=== PATIENT | female | born 1990 | race Hispanic/Latino ===

== ENCOUNTER 2017-05-17 16:25 | Day surgery (SDC) | payer OTHER, SELFPAY ==
[2017-05-17 17:13] VITALS: BMI 26.1
--- NOTE | 2017-05-17 18:04 | PRG ---
DATE OF SERVICE: 05/17/2017 TIME OF EVALUATION: 1715. LOCATION: Labor and Delivery triage. This is a patient of Dr. Her. REASON FOR EVALUATION: Suspected contractions at 39 weeks and 2 days. HISTORY OF PRESENT ILLNESS: This is a 27-year-old G1, P0, who has a due date of 05/22/2017 , which makes her 39 weeks and 2 days with a complaint of contractions and bloody show. She was see n yesterday in the office by Dr. Her and was called to 1 cm dilated. She denies trauma, recent le akage of fluid, fever or decreased movement. She denies any complications. REVIEW OF SYSTEMS: Complete review of systems was checked and is otherwise negative unless specifie d in the HPI. ALLERGIES: None. PAST SURGICAL HISTORY: Includes appendectomy in 2003. OBSTETRIC HISTORY: Significant that she is at a primigravida status and she is GBS positive. MEDICATIONS: None. PHYSICAL EXAMINATION: VITAL SIGNS: Her blood pressure is 124/80, pulse is 80, respirations are 18, and she is afebrile wi th a temperature of 98.7. GENERAL: Clinically, she is in no acute distress. ABDOMEN: Soft and nontender. There is no evidence of gross vaginal bleeding or ruptured membranes on perineal inspection. CERVICAL: Reveals a cervix of 3 cm dilation, 30% effacement, -3 station. She is cephalic. Bag of water is intact. On monitor, heart tones are in the 130s to 140s with moderate variability. There are ac celerations. There are no pathological decelerations. Contractions occur about 1 every 15-20 minut es. heart tones are reassuring. ASSESSMENT: This is a primigravida at 39 weeks and 2 days, the patient of Dr. Her, who is GBS pos itive in the latent phase of labor. She made cervical change from yesterday's exam and she is now 3 cm. PLAN: 1. As she is still in the latent phase, we will observe the patient here in Labor and Delivery for about 2 hours and seems to make any further progress. 2. Pain meds if needed. 3. If she makes any cervical change, we will notify Dr. Her and admit the patient to Labor and [facility]. 4. If remains unchanged with any in active contraction pattern, we may further allow for outpatient management with an outpatient followup in 24 hours. 5. Observation for now in Labor and Delivery.
--- NOTE | 2017-05-17 20:07 | PRG ---
DATE OF SERVICE: 05/17/2017 TIME OF BEDSIDE EVALUATION: 19:35 TIME OF DICTATION: 19:50 LOCATION: Labor and Delivery triage, bed B. REASON FOR REEVALUATION: : This is a patient who has been observed in Labor and Delivery for about 2 hours and has now ambulated and this is her reassessment of her cervical status. In brief, this is a patient who was called 3 cm about 2.5 hours ago and after ambulation [id number] presen ts for recheck of her cervix. She denies vaginal bleeding or leakage of fluid. She still has good movement. She denies headaches, right upper quadrant pain or visual changes. PHYSICAL EXAMINATION: VITAL SIGNS: Blood pressure is 118/78, pulse is in the 80s, breathing is unlabored at about 18. ABDOMEN: Soft and nontender. CERVICAL EXAM: Repeat cervical examination performed by Doris, the patient's nurse, while I was at [facility], remains 3 cm dilated, 40% effaced, -2 station, cephalic presentation. Bag of starks intact. MONITOR: There is still no evidence of consistent significant contractions, but she does have some uterine irritability. heart tones are in the 130s to 140s with moderate variability and accelerations. There is no evidence of pathological decelerations. ASSESSMENT: This is a patient with latent labor without cervical progress past 3 cm after 2 hours o f observation. PLAN: 1. The patient told to seek followup in 24-48 hours for reassessment, which Dr. Her as an outpati ent in the clinic. 2. She was told to return to Labor and Delivery if she was concerned that labor was progressing for signs or symptoms of vaginal bleeding or leakage of fluids or any other pressing issue. 3. Instructions given and questions answered. 4. Questions also answered from the who is at bedside. 5. The patient is stable for outpatient management.
== END 2017-05-17 19:58 | disposition home or self-care (01) ==
LOC: L&D/OP 16:25
PROVIDERS: ATTEND Family Medicine
DX: O47.1 False labor at or after 37 completed weeks of gestation (principal); Z3A.39 39 weeks gestation of pregnancy; Z90.49 Acquired absence of other specified parts of digestive tract

== ENCOUNTER 2017-05-18 08:39 | Day surgery (SDC) | payer SELFPAY ==
[2017-05-18 09:34] VITALS: BMI 26.9
--- NOTE | 2017-05-18 14:10 | PRG ---
DATE OF SERVICE: 05/18/2017 PRIMARY OB: Dr. Cole Her CHIEF COMPLAINT: Abdominal pains. HISTORY OF PRESENT ILLNESS: The patient is a 27-year-old G1, P0 female with an intrauterine pregnan cy at 39 weeks and 3 days who is representing to Labor and Delivery today with persistent abdominal pains that she reports are about every 7-12 minutes apart. She presented last night about 12:00 pre vious for similar complaints and was noted to be 3 cm dilated, 40% effaced. The patient denies any leakage of fluid or vaginal bleeding. She denies any complications or medical problems related to t his . Denies any recent illness, fever, fall. PAST MEDICAL HISTORY: Negative. PAST SURGICAL HISTORY: She had an appendectomy 13 years ago. ALLERGIES: No known drug allergies. MEDICATIONS: vitamins. OB LABS: Blood type is O positive, antibody screen is negative. RPR is reactive 1-2 with confirmat ory testing is negative. Second RPR third trimester is negative. HIV is nonreactive. Third trimes ter HIV is nonreactive. Hepatitis B surface antigen is negative. She is rubella immune. GC chlamy maci are negative. UDS was negative. Her one hour Glucola was 146, her 3-hour test is 91, 148, 134 and 120. She is GBS positive and received TDAP on 04/2017. REVIEW OF SYSTEMS: Patient denies any recent illness, fever, headache, cough, chest pain, shortness of breath, nausea, vomiting, diarrhea, constipation, any new rashes. She denies any hip problems o r knee problems, muscle weakness. She denies any leakage of fluid or vaginal bleeding. She denies any urinary urgency. PHYSICAL EXAMINATION: VITAL SIGNS: Blood pressure is 131/86, pulse of 66, respiratory rate of 16, satting 99% on room air , temperature 97.9. GENERAL: She appears to have some distress with contractions. She is otherwise alert and oriented, and cooperative and pleasant to interact with. HEENT: Head is normocephalic, atraumatic. LUNGS: Clear to auscultation bilaterally. HEART: Regular rate and rhythm. ABDOMEN: Soft in between contractions and gravid. EXTREMITIES: Nontender, nonedematous. PELVIC: Vulva is without masses, lesions or erythema. Vagina is moist. Cervix is 3, 80 with station at -1 and vertex presentation. heart tracing performed for threatened labor over the course of several hours, baseline noted to be in the 130s with moderate long-term variability, positive accelerations, no decelerations. Co ntractions are occurring about every 10-12 minutes with at times some irritability in between. ASSESSMENT AND PLAN: The patient is a female with an intrauterine at 39 weeks and 3 days who has presented with term contractions and is likely latently laboring at this time. She fonseca s been given 2 mg of Stadol and IV hydration early in her stay. She was then allowed to rest for a couple hours. Cervical exam has been unchanged and is being discharged to home. She is concerned a bout the level of pain she would be experiencing at home and has accepted 2 more milligrams of Stado l to be given IM, therefore it would last longer in her system. The patient has been given term lab or precautions. She is a patient of Dr. Jc and has been counseled as to follow up with her herve [facility] as scheduled.
== END 2017-05-18 15:00 | disposition home or self-care (01) ==
LOC: L&D/OP 08:39
PROVIDERS: ATTEND Family Medicine
DX: O47.1 False labor at or after 37 completed weeks of gestation (principal); Z79.899 Other long term (current) drug therapy; Z3A.39 39 weeks gestation of pregnancy; Z90.49 Acquired absence of other specified parts of digestive tract
CPT/HCPCS: 59025; 96360; 96361; 96372; J0595

== ENCOUNTER 2017-05-18 20:26 | Inpatient (IN) | payer MEDICAID, SELFPAY ==
[2017-05-18 20:52] VITALS: BMI 26.9
[2017-05-18] MEDS ORDERED: Lactated Ringer's 1,000 ML IV SCH (21:00)
[2017-05-18] MEDS ORDERED: Ibuprofen 800 MG TAB PO PRN (23:35)
[2017-05-18] MEDS ORDERED: Lidocaine 1% (PF) 30 ML VIAL SC PRN (23:35)
[2017-05-18] MEDS ORDERED: LR / Pitocin 40 units/1000 ml 1,000 ML IV PRN (23:35)
[2017-05-18] MEDS ORDERED: Ondansetron HCl/PF 4 MG/2 ML Vial IVP PRN (23:35)
[2017-05-18] MEDS ORDERED: HYDROcodone/Acetaminophen 5/325 mg Tablet PO PRN ×2 (23:35)
[2017-05-18] MEDS ORDERED: Penicillin G Potassium 5 MILL.UNITS in Sodium Chloride 0.9% 100 ML IVPB SCH (23:45)
[2017-05-18] MEDS: Lactated Ringer's 1,000 ML IV SCH (23:46)
[2017-05-18 23:47] LABS: Hematocrit 34.9 % (36.0-47.0); Mean Platelet Volume 9.3 fL (7.4-10.4); Red Blood Cell (RBC) Count 4.03 mill/uL (4.20-5.40); White Blood Cell (WBC) Count 10.9 thou/uL (4.8-10.8)
[2017-05-19] MEDS ORDERED: Fentanyl 4 mcg/Marc 0.1% Cadd 100 ML ONE (00:10)
[2017-05-19] MEDS ORDERED: Ondansetron HCl/PF 4 MG/2 ML Vial IVP PRN ×2 (00:51→15:42)
[2017-05-19] MEDS ORDERED: Lactated Ringer's 500 ML IV PRN (00:51)
[2017-05-19] MEDS ORDERED: Promethazine HCl 25 MG/ML VIAL IM PRN (00:51)
[2017-05-19] MEDS ORDERED: Eucerin (Mineral Oil/Petrolatum,White) 30 gm Jar TOP PRN (00:51)
[2017-05-19] MEDS ORDERED: ePHEDrine/0.9% NaCl/PF SYRINGE 50 mg/10 ml SLOW IVP PRN (00:51)
[2017-05-19] MEDS ORDERED: Acetaminophen 325 MG TAB PO PRN (00:51)
[2017-05-19] MEDS ORDERED: Naloxone HCl 0.4 mg/ml Vial IVP PRN ×2 (00:51)
[2017-05-19] MEDS ORDERED: diphenhydrAMINE HCl 50 MG/ML 1 ML VIAL IVP PRN (00:51)
[2017-05-19] MEDS ORDERED: Communication Order-Pharmacy FS SCH (01:00)
[2017-05-19] MEDS: Lactated Ringer's 1,000 ML IV SCH ×10 (02:15→22:30)
[2017-05-19] MEDS: LR 500 ML/Oxytocin 10 units 500 ML IV SCH ×2 (02:15→05:11)
[2017-05-19] MEDS: Penicillin G 2.5 MILL.units 2.5 MILL.UNITS in Premix Bag 1 BAG IVPB SCH ×4 (02:15→22:30)
[2017-05-19] MEDS: Fentanyl 4mcg/Marcaine 0.1% Cassette 100 ML EPIDURAL SCH ×2 (02:16→07:58)
[2017-05-19] MEDS ORDERED: Bupivacaine 0.25% HCL 30 ML VIAL ONE (15:15)
[2017-05-19] MEDS ORDERED: Benzocaine/Menthol 20-0.5% 60 ML CAN TOP PRN (15:42)
[2017-05-19] MEDS ORDERED: Lanolin Ointment 7 GM TUBE TOP PRN (15:42)
[2017-05-19] MEDS ORDERED: Milk Of Magnesia 30 ML UDCUP PO PRN (15:42)
[2017-05-19] MEDS ORDERED: diphenhydrAMINE HCl 25 MG CAP PO PRN (15:42)
[2017-05-19] MEDS ORDERED: Bisacodyl 10 MG SUPP PR PRN (15:42)
[2017-05-19] MEDS ORDERED: LR / Pitocin 40 units/1000 ml 1,000 ML IV SCH (15:42)
[2017-05-19] MEDS ORDERED: HYDROcodone/Acetaminophen 5/325 mg Tablet PO PRN ×2 (15:42)
[2017-05-19] MEDS: Ibuprofen 800 MG TAB PO SCH ×2 (15:52→21:14)
[2017-05-19] MEDS: Ferrous Sulfate 325 MG TAB PO SCH (16:52)
[2017-05-19] MEDS: Docusate (Surfak) 240 MG CAP PO SCH (21:38)
[2017-05-20 05:51] LABS: Mean Platelet Volume 8.1 fL (7.4-10.4); Red Blood Cell (RBC) Count 3.19 mill/uL (4.20-5.40); White Blood Cell (WBC) Count 11.7 thou/uL (4.8-10.8)
[2017-05-20] MEDS: Ibuprofen 800 MG TAB PO SCH ×3 (06:08→21:29)
[2017-05-20] MEDS: Docusate (Surfak) 240 MG CAP PO SCH ×2 (09:35→21:27)
[2017-05-20] MEDS: Ferrous Sulfate 325 MG TAB PO SCH ×2 (09:35→18:07)
[2017-05-20] MEDS: Prenatal Vitamin 1 TAB PO SCH (09:35)
[2017-05-21] MEDS: Ibuprofen 800 MG TAB PO SCH ×3 (06:01→20:25)
[2017-05-21] MEDS: Ferrous Sulfate 325 MG TAB PO SCH ×2 (09:55→17:21)
[2017-05-21] MEDS: Prenatal Vitamin 1 TAB PO SCH (09:55)
[2017-05-21] MEDS: Docusate (Surfak) 240 MG CAP PO SCH ×2 (09:55→20:25)
[2017-05-21 21:27] VITALS: BP 135/77; TEMP 97.8
== END 2017-05-21 21:50 | disposition home or self-care (01) | DRG 775 ==
LOC: L&D/OP 20:26 → L&D 23:27 → 3SW 05-19 15:46
PROVIDERS: ADMIT Family Medicine; ATTEND Family Medicine
PROC: 10D07Z6 Extraction of Products of Conception, Vacuum, Via Natural or Artificial Opening (ICD-10-PCS; principal; 2017-05-19)
PROC: 10907ZC Drainage of Amniotic Fluid, Therapeutic from Products of Conception, Via Natural or Artificial Opening (ICD-10-PCS; 2017-05-19)
PROC: 0W8NXZZ Division of Female Perineum, External Approach (ICD-10-PCS; 2017-05-19)
PROC: 3E0P3VZ Introduction of Hormone into Female Reproductive, Percutaneous Approach (ICD-10-PCS; 2017-05-19)
DX: O76 Abnormality in fetal heart rate and rhythm complicating labor and delivery (principal); O64.0XX0 Obstructed labor due to incomplete rotation of fetal head, not applicable or unspecified; O99.824 Streptococcus B carrier state complicating childbirth; Z37.0 Single live birth; Z3A.39 39 weeks gestation of pregnancy; O70.1 Second degree perineal laceration during delivery
CPT/HCPCS: 36415; 85027; 86780; 87340; J0595; J2001; J2405; J2540; J7050; J7120; S0020

== ENCOUNTER 2020-02-27 08:37 | Outpatient (CLI) | payer OTHER ==
--- NOTE | 2020-02-27 09:40 | ULT ---
OB ULTRASOUND: HISTORY: anatomy FINDINGS: A single live intrauterine gestation is seen with measurements corresponding to an estimate d gestational age of 20 weeks 6 days and MINA at 07/11/2020. The estimated weight measures 3 86 g or 14 ounces (56% by Hadlock criteria). biometry: BPD: 4.75 cm, 20 weeks 3 days HC 17.99 cm, 20 weeks 3 days AC: 15.54 cm, 20 weeks 5 days FL 3.58 cm, 21 weeks 3 days heart rate: 1 43 bpm Placenta: Posterior Placenta previa: No MONIQUE: 14.3 cm Cervical length: 3.8 cm A three-vessel cord, cord insertion, kidneys, bladder, stomach, 4 chambered heart, lateral vent ricles, cerebellum, spine, lips/nose, upper and lower extremities are visualized. No definite anomalies are seen. IMPRESSION: Single live intrauterine gestation of 20 weeks 6 days estimated gestational age and MINA at 07/11/2020
== END 2020-02-27 08:38 | disposition home or self-care (01) ==
LOC: BICULT 08:37
PROVIDERS: ATTEND Family Medicine
DX: Z34.82 Encounter for supervision of other normal pregnancy, second trimester (principal); Z3A.20 20 weeks gestation of pregnancy
CPT/HCPCS: 76805

== ENCOUNTER 2020-07-01 16:31 | Outpatient (CLI) | payer OTHER ==
[2020-07-02 13:02] LABS: SARS-CoV-2 MS2 Positive; SARS-CoV-2 N Gene Negative; SARS-CoV-2 S Gene Negative; SARS-CoV-2 by NAA Not Detected (NotDetected); SARS-CoV-2 orf1ab Negative
== END 2020-07-01 16:32 | disposition home or self-care (01) ==
LOC: LABBT 16:31
PROVIDERS: ATTEND Family Medicine
DX: Z01.812 Encounter for preprocedural laboratory examination (principal); Z20.828 Contact with and (suspected) exposure to other viral communicable diseases
CPT/HCPCS: 87635; U0003

== ENCOUNTER 2020-07-04 05:30 | Inpatient (IN) | payer OTHER, SELFPAY ==
[2020-07-04] MEDS ORDERED: Lidocaine 1% (PF) 30 ML VIAL SC PRN (06:35)
[2020-07-04] MEDS ORDERED: Butorphanol Tartrate 1 MG/ML VIAL SLOW IVP PRN (06:35)
[2020-07-04] MEDS ORDERED: Diphenoxylate HCl/Atropine Tablet PO PRN (06:35)
[2020-07-04] MEDS ORDERED: hydrALAZINE 20 MG/ML VIAL SLOW IVP PRN ×2 (06:35→18:54)
[2020-07-04] MEDS ORDERED: Ibuprofen 800 MG TAB PO PRN (06:35)
[2020-07-04] MEDS ORDERED: HYDROcodone/Acetaminophen 5/325 mg Tablet PO PRN ×2 (06:35→18:54)
[2020-07-04] MEDS ORDERED: Methylergonovine 0.2 MG/ML VIAL IM PRN (06:35)
[2020-07-04] MEDS ORDERED: Carboprost 250 MCG/ML AMP IM PRN (06:35)
[2020-07-04] MEDS ORDERED: Ondansetron PF 4 MG/2 ML Vial IVP PRN ×3 (06:35→18:54)
[2020-07-04] MEDS ORDERED: Promethazine HCl 25 MG/ML VIAL IM PRN ×2 (06:35→10:42)
[2020-07-04] MEDS ORDERED: Misoprostol 200 MCG TAB PR PRN (06:35)
[2020-07-04] MEDS ORDERED: NS w/ Oxytocin 10 units 500 ML IV SCH ×2 (06:45)
[2020-07-04] MEDS: Lactated Ringer's 1,000 ML IV SCH ×2 (07:35→08:21)
[2020-07-04 07:53] LABS: Hemoglobin 10.6 g/dL (12.0-16.0); Mean Corpuscular HGB CONC 30.9 g/dL (32.0-36.0); Mean Corpuscular Hemoglobin 26.6 pg (27.0-31.0); Platelet Count 171 thou/uL (130-400); RBC Distribution Width 12.2 % (11.5-14.5); Red Blood Cell (RBC) Count 3.98 mill/uL (4.20-5.40); White Blood Cell (WBC) Count 7.4 thou/uL (4.8-10.8)
[2020-07-04 08:24] LABS: HBSAg Index 0.24 S/CO (0-0.99); Hep B Surf Ag Non-Reactive S/CO (NonReactive); Syphilis Antibody Nonreactive (Nonreactive); Syphilis Antibody Index 0.05 S/CO (<1.00 Non-Reactive)
[2020-07-04 08:42] VITALS: BMI 26.9
[2020-07-04] MEDS ORDERED: DISCONTINUE ALL PREVIOUS NARCOTICS FS SCH (09:45)
[2020-07-04] MEDS ORDERED: Bupivacaine 0.5% 20 ML, fentaNYL Citrate/PF 400 MCG in Sodium Chloride 0.9% 72 ML EPIDURAL SCH (09:45)
[2020-07-04] MEDS ORDERED: Acetaminophen 325 MG TAB PO PRN (10:42)
[2020-07-04] MEDS ORDERED: Lactated Ringer's 500 ML IV PRN (10:42)
[2020-07-04] MEDS ORDERED: ePHEDrine 50 MG/ML VIAL SLOW IVP PRN (10:42)
[2020-07-04] MEDS ORDERED: diphenhydrAMINE 50 MG/ML VIAL IVP PRN (10:42)
[2020-07-04] MEDS ORDERED: Naloxone HCl 0.4 mg/ml Vial IVP PRN ×2 (10:42)
[2020-07-04] MEDS ORDERED: Communication Order-Pharmacy FS SCH (10:45)
[2020-07-04] MEDS ORDERED: Fentanyl 4 mcg/Bupivacaine 0.1% Cassette 100 ML EPIDURAL SCH (10:45)
[2020-07-04] MEDS ORDERED: Sodium Chloride 0.9% (PF) 10 ML VIAL ONE (14:06)
[2020-07-04] MEDS ORDERED: Bupivacaine 0.25% HCL 30 ML VIAL ONE (14:06)
[2020-07-04] MEDS: NS / Oxytocin 40 units/1000ml 1,000 ML IV PRN ×2 (15:17→17:24)
[2020-07-04] MEDS ORDERED: Azithromycin 500 MG in Sodium Chloride 0.9% 250 ML 250 ML IVPB SCH (16:00)
[2020-07-04] MEDS ORDERED: CEFAZOLIN 2 GM in Premix Bag 1 BAG IVPB SCH (16:00)
[2020-07-04] MEDS ORDERED: diphenhydrAMINE 25 MG CAP PO PRN (18:54)
[2020-07-04] MEDS ORDERED: NS / Oxytocin 40 units/1000ml 1,000 ML IV SCH (18:54)
[2020-07-04] MEDS ORDERED: Milk Of Magnesia 30 ML UDCUP PO PRN (18:54)
[2020-07-04] MEDS ORDERED: Adacel (T-DAP) 0.5 ML SYRINGE IM ONE (18:54)
[2020-07-04] MEDS ORDERED: Lanolin Ointment 7 GM TUBE TOP PRN (18:54)
[2020-07-04] MEDS ORDERED: Bisacodyl 10 MG SUPP PR PRN (18:54)
[2020-07-04] MEDS: Ferrous Sulfate 325 MG TAB PO SCH (19:13)
[2020-07-04] MEDS: HYDROcodone/Acetaminophen 5/325 mg Tablet PO PRN (20:12)
[2020-07-04] MEDS: Docusate Calcium (SURFAK) 240 MG CAP PO SCH (22:01)
[2020-07-04] MEDS: Ibuprofen 800 MG TAB PO SCH (22:01)
[2020-07-05] MEDS: Ibuprofen 800 MG TAB PO SCH ×3 (05:11→21:10)
[2020-07-05] MEDS: Prenatal Vitamin 1 TAB PO SCH (08:49)
[2020-07-05] MEDS: Docusate Calcium (SURFAK) 240 MG CAP PO SCH ×2 (08:49→21:10)
[2020-07-05] MEDS: Ferrous Sulfate 325 MG TAB PO SCH ×2 (08:50→15:29)
[2020-07-05] MEDS ORDERED: FLU VACC QS2020-21(6MOS UP)/PF 60 MCG/0.5 ML SYRINGE IM ONE (09:15)
[2020-07-05] MEDS: HYDROcodone/Acetaminophen 5/325 mg Tablet PO PRN ×2 (09:21→14:56)
[2020-07-05 13:01] LABS: Hemoglobin 10.3 g/dL (12.0-16.0); Mean Corpuscular HGB CONC 34.4 g/dL (32.0-36.0); Mean Corpuscular Volume 87.1 fL (78.0-98.0); Mean Platelet Volume 9.3 fL (7.4-10.4); Platelet Count 136 thou/uL (130-400); RBC Distribution Width 12.3 % (11.5-14.5); Red Blood Cell (RBC) Count 3.43 mill/uL (4.20-5.40)
[2020-07-06] MEDS: Ibuprofen 800 MG TAB PO SCH ×2 (05:23→14:40)
[2020-07-06] MEDS: Ferrous Sulfate 325 MG TAB PO SCH (09:04)
[2020-07-06] MEDS: Docusate Calcium (SURFAK) 240 MG CAP PO SCH (09:05)
[2020-07-06] MEDS: Prenatal Vitamin 1 TAB PO SCH (09:05)
[2020-07-06 09:36] VITALS: BP 149/78; TEMP 98
== END 2020-07-06 15:35 | disposition home or self-care (01) | DRG 807 ==
LOC: L&D 06:31 → 3SW 18:37
PROVIDERS: ADMIT Family Medicine; ATTEND Family Medicine
PROC: 10E0XZZ Delivery of Products of Conception, External Approach (ICD-10-PCS; principal; 2020-07-04)
PROC: 10907ZC Drainage of Amniotic Fluid, Therapeutic from Products of Conception, Via Natural or Artificial Opening (ICD-10-PCS; 2020-07-04)
PROC: 3E0P7VZ Introduction of Hormone into Female Reproductive, Via Natural or Artificial Opening (ICD-10-PCS; 2020-07-04)
PROC: 10907ZC Drainage of Amniotic Fluid, Therapeutic from Products of Conception, Via Natural or Artificial Opening (ICD-10-PCS; 2020-07-04)
DX: O80 Encounter for full-term uncomplicated delivery (principal); Z37.0 Single live birth; Z20.828 Contact with and (suspected) exposure to other viral communicable diseases; Z3A.39 39 weeks gestation of pregnancy
CPT/HCPCS: 36415; 51702; 62272; 85027; 86780; 86850; 86900; 86901; 87340; J0690; J2590; J3010; J3490; S0020

== ENCOUNTER 2020-08-23 15:38 | Emergency (ER) | payer MEDICAID ==
[2020-08-23] MEDS ORDERED: Bupivacaine 0.5% 10 ML VIAL ONE (16:39)
[2020-08-23] MEDS ORDERED: Dexamethasone 10 MG/ML VIAL ONE (16:40)
== END 2020-08-23 17:36 | disposition home or self-care (01) ==
LOC: ERS 15:38
DX: G44.209 Tension-type headache, unspecified, not intractable (principal); N61.0 Mastitis without abscess
CPT/HCPCS: 64461; 96374; J1100; J3490